=== PATIENT | female | born 1985 | race Asian ===

== ENCOUNTER 2019-05-28 12:06 | Emergency (ER) | payer OTHER ==
[~2019-05-28] VITALS: Ht 157.5 cm; Wt 54.4 kg
[2019-05-28 12:15] VITALS: BP 123/80
[2019-05-28] MEDS ORDERED: KETOROLAC TROMETHAMINE 10 MG TABLET PO STA (13:02)
[2019-05-28] MEDS ORDERED: ORPHENADRINE CITRATE 60 MG/2 ML VIAL. IM ONE (13:15)
[2019-05-28] MEDS ORDERED: ONDANSETRON ODT 4 MG TAB.RAPDIS. PO ONE (13:15)
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
[2019-05-28] MEDS ORDERED: ORPH100T PO (13:57)
[2019-05-28] MEDS ORDERED: IBUP-1027 PO (13:57)
== END 2019-05-28 14:05 | disposition home or self-care (01) ==
LOC: ER 12:06
DX: S06.0X9A Concussion with loss of consciousness of unspecified duration, initial encounter (principal); M25.512 Pain in left shoulder; R07.89 Other chest pain; V49.49XA Driver injured in collision with other motor vehicles in traffic accident, initial encounter; Y93.89 Activity, other specified; Y92.488 Other paved roadways as the place of occurrence of the external cause; Y99.8 Other external cause status
CPT/HCPCS: 71046; 73030; 96372; 99284; J2360; Q0162